=== PATIENT | male | born 1970 | race African-American/Black ===

== ENCOUNTER 2016-12-06 05:58 | Emergency (ER) | payer OTHER ==
[~2016-12-06] VITALS: Ht 177.8 cm; Wt 110.2 kg
[2016-12-06 06:41] LABS: BASOPHIL % 0.4 % (0-2); PLATELET COUNT 214 x10^3mcL (130-400); RED CELL DISTRIBUTION WIDTH 13.9 % (11.5-14.5)
[2016-12-06 06:47] LABS: ALKALINE PHOSPHATASE 61 U/L (46-116); ALT/SGPT 45 U/L (16-63); AMYLASE 36 U/L (25-115); AST/SGOT 126 U/L (15-37); BILIRUBIN TOTAL 0.9 mg/dL (0.20-1.00); CALCIUM 8.8 mg/dL (8.5-10.1); CARBON DIOXIDE 28.3 mmol/L (21-32); CHLORIDE SERUM 105 mmol/L (98-107); CREATININE SERUM 1.2 mg/dL (0.7-1.3); GFR1 > 60 mL/min; GLUCOSE SERUM 98 mg/dL (74-106); LIPASE 99 IU/L (73-393); POTASSIUM SERUM 4.2 mmol/L (3.5-5.1); SODIUM SERUM 142 mmol/L (136-145); TOTAL PROTEIN, SERUM 6.9 g/dL (6.4-8.2)
[2016-12-06 08:41] VITALS: BP 122/84
== END 2016-12-06 08:41 | disposition home or self-care (01) ==
LOC: ED 05:58
PROVIDERS: Specialist
DX: R10.32 Left lower quadrant pain (principal); R10.31 Right lower quadrant pain; R11.10 Vomiting, unspecified; E66.9 Obesity, unspecified; Z90.49 Acquired absence of other specified parts of digestive tract
CPT/HCPCS: 83880; J1885; J2405; J3010